=== PATIENT | male | born 1965 | race Caucasian/White ===

== ENCOUNTER 2024-06-18 11:14 | Emergency (ER) | payer SELFPAY | END 2024-06-18 13:27 | disposition home or self-care (01) | LOC: FB.ED 11:14 | DX: S43.402A Unspecified sprain of left shoulder joint, initial encounter (principal); X50.9XXA Other and unspecified overexertion or strenuous movements or postures, initial encounter | CPT/HCPCS: 73030-LT; 99283 ==

== ENCOUNTER 2025-03-20 06:02 | Day surgery (SDC) | payer MEDICAID ==
[~2025-03-20 06:02] MED LIST: Sodium Chloride 0.9% 10 ML Syringe FLUSH PRN
[2025-03-20] MEDS ORDERED: Dexamethasone 4 MG/ML 5 ML MDV IVPUSH ONE (06:03)
[2025-03-20] MEDS ORDERED: Ketamine 500 mg/10 ML MDV IV ONE (06:03)
[2025-03-20] MEDS ORDERED: Propofol 200 MG/20 ML SDV IV ONE (06:03)
[2025-03-20] MEDS ORDERED: fentaNYL 100 MCG/2 ML SDV IV ONE (06:03)
[2025-03-20] MEDS ORDERED: Ketorolac 30 MG/ML SDV IVPUSH ONE (06:03)
[2025-03-20] MEDS ORDERED: Ondansetron 4 MG/2 ML SDV IVPUSH ONE (06:03)
[2025-03-20] MEDS ORDERED: Midazolam 1 MG/ML 2 ML SDV IV ONE (06:03)
[2025-03-20] MEDS: Lidocaine 1% with EPINEPHrine 1:100,000 20 ML MDV INJECT ONE ×2 (07:16)
[2025-03-20] MEDS: Lactated Ringers 1,000 ML IV SCH (07:28)
== END 2025-03-20 10:02 | disposition home or self-care (01) ==
LOC: FB.SDS 06:02
PROVIDERS: ATTEND Surgery
DX: K42.9 Umbilical hernia without obstruction or gangrene (principal); F17.200 Nicotine dependence, unspecified, uncomplicated; Z79.899 Other long term (current) drug therapy
CPT/HCPCS: 00790; 49591; 88302; J0665; J0690; J1100; J1885; J2004; J2250; J2405; J2704; J3010; J3490; J7120